=== PATIENT | female | born 1975 | race Caucasian/White ===

== ENCOUNTER 2017-10-14 07:15 | Inpatient (IN) | payer BC ==
[2017-10-14] MEDS: PANTOPRAZOLE 40 MG INJ IV ×2 (07:58→17:07)
[2017-10-14] MEDS: ONDANSETRON 4 MG INJ IV ×2 (07:58→11:28)
[2017-10-14] MEDS: SOD CHLORIDE 0.9% 500 ML IV (07:59)
[2017-10-14 08:02] LABS: ADD MAN DIFF? NO
[2017-10-14 08:05] LABS: BASOPHIL # 0.1 10^3/ul (0.0-0.1); BASOPHILS % 0.5 % (0.0-2.0); EOSINOPHILS # 0.1 10^3/ul (0.0-0.5); EOSINOPHILS % 0.6 % (0.0-7.0); HEMATOCRIT 33.9 % (37.0-47.0); HEMOGLOBIN 11.2 g/dl (12.0-16.0); LYMPHOCYTES # 1.3 10^3/ul (0.8-2.9); LYMPHOCYTES % 12.2 % (15.0-51.0); MEAN CORPUSCULAR HEMOGLOBIN 29.9 pg (29.0-33.0); MEAN CORPUSCULAR VOLUME 90.4 fl (82.0-101.0); MEAN PLATELET VOLUME 11.9 fl (7.4-10.4); MONOCYTE # 0.5 10^3/ul (0.3-0.9); MONOCYTES % 4.9 % (0.0-11.0); NEUTROPHIL # 8.5 10^3/ul (1.6-7.5); NEUTROPHILS % 81.4 % (39.0-77.0); PLATELET COUNT 225 10^3/UL (140-415); RED BLOOD COUNT 3.75 10^6/ul (4.20-5.40); RED CELL DISTRIBUTION WIDTH 12.5 % (11.5-14.5)
[2017-10-14 08:05] LABS: WHITE BLOOD COUNT 10.4 10^3/ul (4.8-10.8)
[2017-10-14 08:24] LABS: INR 0.91; PROTIME 12.3 Sec (11.9-14.9)
[2017-10-14 08:25] LABS: PARTIAL THROMBOPLASTIN TIME 24.5 Sec (25.0-35.0)
[2017-10-14 08:28] LABS: ALANINE AMINOTRANSFERASE 18 IU/L (13-69); ALBUMIN 3.8 g/dl (3.3-4.9); ALBUMIN/GLOBULIN RATIO 1.31; ALKALINE PHOSPHATASE 60 IU/L (42-121); ANION GAP 20 (8-16); ASPARTATE AMINO TRANSFERASE 20 IU/L (15-46); BILIRUBIN,INDIRECT 0.4 mg/dl (0-1.1); BILIRUBIN,TOTAL 0.4 mg/dl (0.2-1.3); BLOOD UREA NITROGEN 22 mg/dl (7-20); CALCIUM 8.5 mg/dl (8.4-10.2); CARBON DIOXIDE 21 mmol/L (21-31); CHLORIDE 103 mmol/L (97-110); CREATININE 0.42 mg/dl (0.44-1.00); GLUCOSE 291 mg/dl (70-220); LIPASE 91 U/L (23-300); POTASSIUM 4.6 mmol/L (3.5-5.1); SODIUM 139 mmol/L (135-144); TOTAL PROTEIN 6.7 g/dl (6.1-8.1)
[2017-10-14 10:24] LABS: ETHANOL < 10.0 mg/dl
[2017-10-14] MEDS ORDERED: NACL 0.9% 3 ML SYG IV (10:30)
[2017-10-14] MEDS ORDERED: INSULIN ASPART [NOVOLOG] 3 ML PEN SC (10:30)
[2017-10-14] MEDS ORDERED: GLUCOSE GEL 15 GRAM TUBE BUCCAL (11:00)
[2017-10-14] MEDS ORDERED: GLUCOSE GEL 15 GRAM TUBE PO ×2 (11:00)
[2017-10-14] MEDS ORDERED: GLUCAGON 1 MG INJ IM (11:00)
[2017-10-14] MEDS ORDERED: DEXTROSE 50% 50 ML SYRINGE IV ×2 (11:00)
[2017-10-14] MEDS: SOD CHLORIDE 0.9% 1,000 ML IV ×2 (11:20→20:25)
[2017-10-14 12:47] LABS: HEMOGLOBIN A1C 8.7 % (0-5.9)
[2017-10-14] MEDS: Insulin NOVOLOG SS MILD Algorithm (NPO/TPN/ENTERAL FEEDS) SC ×3 (13:38→20:30)
[2017-10-14 13:59] LABS: HEMATOCRIT 29.4 % (37.0-47.0); HEMOGLOBIN 9.7 g/dl (12.0-16.0)
[2017-10-14 15:41] LABS: ADD UMIC YES; UR ASCORBIC ACID NEGATIVE (NEGATIVE); UR BACTERIA FEW /HPF (NONE SEEN); UR BILIRUBIN (Dip) NEGATIVE (NEGATIVE); UR BLOOD (Dip) NEGATIVE (NEGATIVE); UR CLARITY CLEAR (CLEAR); UR COLOR STRAW (YELLOW); UR GLUCOSE (Dip) 3+ mg/dL (NEGATIVE); UR KETONES (Dip) 2+ mg/dL (NEGATIVE); UR LEUKOCYTE ESTERASE (Dip) 2+ Leu/ul (NEGATIVE); UR NITRITE (Dip) NEGATIVE (NEGATIVE); UR RBC 1 /HPF (0-5); UR SPECIFIC GRAVITY (Dip) 1.025 (1.003-1.030); UR SQUAMOUS EPITHELIAL CELL FEW /HPF (FEW); UR TOTAL PROTEIN (Dip) NEGATIVE (NEGATIVE); UR UROBILINOGEN (Dip) NEGATIVE (NEGATIVE); UR WBC 1 /HPF (0-5)
[2017-10-14 18:05] LABS: AMPHETAMINE/METHAMPHETAMINE NEGATIVE (NEGATIVE); BARBITURATES NEGATIVE (NEGATIVE); BENZODIAZEPINES NEGATIVE (NEGATIVE); CANNABINOIDS NEGATIVE (NEGATIVE); COCAINE NEGATIVE (NEGATIVE); OPIATES NEGATIVE (NEGATIVE)
[2017-10-14] MEDS: INSULIN GLARGINE [LANtus] 3 ML PEN SC (20:24)
[2017-10-14 20:28] LABS: OCCULT BLOOD STOOL NEGATIVE (NEGATIVE)
[2017-10-15] MEDS: Insulin NOVOLOG SS MILD Algorithm (NPO/TPN/ENTERAL FEEDS) SC ×6 (00:56→20:46)
[2017-10-15] MEDS: PANTOPRAZOLE 40 MG INJ IV ×2 (05:17→17:31)
[2017-10-15 05:36] LABS: ADD MAN DIFF? NO
[2017-10-15 05:40] LABS: BASOPHILS % 0.5 % (0.0-2.0); EOSINOPHILS # 0.1 10^3/ul (0.0-0.5); EOSINOPHILS % 1.2 % (0.0-7.0); HEMATOCRIT 23.7 % (37.0-47.0); LYMPHOCYTES # 1.7 10^3/ul (0.8-2.9); LYMPHOCYTES % 28.5 % (15.0-51.0); MEAN CORPUSCULAR HEMOGLOBIN 30.5 pg (29.0-33.0); MEAN CORPUSCULAR HGB CONC 33.8 g/dl (32.0-37.0); MEAN CORPUSCULAR VOLUME 90.5 fl (82.0-101.0); MEAN PLATELET VOLUME 11.4 fl (7.4-10.4); MONOCYTE # 0.4 10^3/ul (0.3-0.9); MONOCYTES % 6.6 % (0.0-11.0); NEUTROPHIL # 3.8 10^3/ul (1.6-7.5); NEUTROPHILS % 62.9 % (39.0-77.0); PLATELET COUNT 189 10^3/UL (140-415); RED BLOOD COUNT 2.62 10^6/ul (4.20-5.40); RED CELL DISTRIBUTION WIDTH 13.1 % (11.5-14.5)
[2017-10-15 06:05] LABS: ALANINE AMINOTRANSFERASE 25 IU/L (13-69); ALBUMIN 2.8 g/dl (3.3-4.9); ALBUMIN/GLOBULIN RATIO 1.12; ALKALINE PHOSPHATASE 47 IU/L (42-121); ANION GAP 11 (8-16); ASPARTATE AMINO TRANSFERASE 12 IU/L (15-46); BILIRUBIN,INDIRECT 0.3 mg/dl (0-1.1); BILIRUBIN,TOTAL 0.3 mg/dl (0.2-1.3); BLOOD UREA NITROGEN 18 mg/dl (7-20); CALCIUM 7.8 mg/dl (8.4-10.2); CARBON DIOXIDE 24 mmol/L (21-31); CHLORIDE 107 mmol/L (97-110); GLUCOSE 219 mg/dl (70-220); POTASSIUM 3.7 mmol/L (3.5-5.1); SODIUM 138 mmol/L (135-144); TOTAL PROTEIN 5.3 g/dl (6.1-8.1)
[2017-10-15 06:06] LABS: PHOSPHORUS 2.5 mg/dl (2.5-4.9)
[2017-10-15 06:06] LABS: CHOLESTEROL 132 mg/dl (100-200); HDL CHOLESTEROL 33 mg/dl (34-88); LDL CHOLESTEROL,CALCULATED 54 mg/dl; MAGNESIUM 1.7 mg/dl (1.7-2.5); TRIGLYCERIDES 227 mg/dl (0-149)
[2017-10-15] MEDS: SOD CHLORIDE 0.9% 1,000 ML IV ×2 (06:29→17:31)
[2017-10-15] MEDS: HYDROCODONE/APAP (5/325) TAB PO (20:42)
[2017-10-15] MEDS: INSULIN GLARGINE [LANtus] 3 ML PEN SC (20:46)
[2017-10-16] MEDS: Insulin NOVOLOG SS MILD Algorithm (NPO/TPN/ENTERAL FEEDS) SC ×4 (01:00→13:00)
[2017-10-16] MEDS: SOD CHLORIDE 0.9% 1,000 ML IV ×2 (01:41→10:26)
[2017-10-16] MEDS: PANTOPRAZOLE 40 MG INJ IV ×2 (05:00→17:42)
[2017-10-16 06:42] LABS: ADD MAN DIFF? NO
[2017-10-16 06:49] LABS: WHITE BLOOD COUNT 5.1 10^3/ul (4.8-10.8)
[2017-10-16 06:49] LABS: BASOPHILS % 0.6 % (0.0-2.0); EOSINOPHILS # 0.1 10^3/ul (0.0-0.5); EOSINOPHILS % 2.2 % (0.0-7.0); HEMATOCRIT 23.3 % (37.0-47.0); HEMOGLOBIN 7.7 g/dl (12.0-16.0); LYMPHOCYTES # 1.6 10^3/ul (0.8-2.9); LYMPHOCYTES % 31.3 % (15.0-51.0); MEAN CORPUSCULAR HEMOGLOBIN 30.4 pg (29.0-33.0); MEAN CORPUSCULAR VOLUME 92.1 fl (82.0-101.0); MEAN PLATELET VOLUME 11.5 fl (7.4-10.4); MONOCYTE # 0.3 10^3/ul (0.3-0.9); MONOCYTES % 5.9 % (0.0-11.0); NEUTROPHILS % 59.8 % (39.0-77.0); PLATELET COUNT 190 10^3/UL (140-415); RED BLOOD COUNT 2.53 10^6/ul (4.20-5.40); RED CELL DISTRIBUTION WIDTH 13.2 % (11.5-14.5)
[2017-10-16 07:15] LABS: MAGNESIUM 1.9 mg/dl (1.7-2.5)
[2017-10-16 07:15] LABS: PHOSPHORUS 3.4 mg/dl (2.5-4.9)
[2017-10-16 07:16] LABS: ALANINE AMINOTRANSFERASE 27 IU/L (13-69); ALBUMIN 2.7 g/dl (3.3-4.9); ALBUMIN/GLOBULIN RATIO 1.08; ALKALINE PHOSPHATASE 50 IU/L (42-121); ANION GAP 6 (8-16); ASPARTATE AMINO TRANSFERASE 32 IU/L (15-46); BILIRUBIN,INDIRECT 0.2 mg/dl (0-1.1); BILIRUBIN,TOTAL 0.2 mg/dl (0.2-1.3); BLOOD UREA NITROGEN 9 mg/dl (7-20); CALCIUM 7.9 mg/dl (8.4-10.2); CARBON DIOXIDE 27 mmol/L (21-31); CHLORIDE 112 mmol/L (97-110); CREATININE 0.48 mg/dl (0.44-1.00); GLUCOSE 122 mg/dl (70-220); SODIUM 141 mmol/L (135-144); TOTAL PROTEIN 5.2 g/dl (6.1-8.1)
[2017-10-16] MEDS: HYDROCODONE/APAP (5/325) TAB PO (10:26)
[2017-10-16] MEDS: PROPOFOL 40 ML (14:17)
[2017-10-16] MEDS: INSULIN ASPART [NOVOLOG] 3 ML PEN SC ×2 (17:36→21:29)
[2017-10-16] MEDS: INSULIN GLARGINE [LANtus] 3 ML PEN SC (21:28)
[2017-10-17] MEDS: PANTOPRAZOLE 40 MG INJ IV (05:42)
[2017-10-17 05:48] LABS: ADD MAN DIFF? NO
[2017-10-17 05:53] LABS: BASOPHILS % 0.6 % (0.0-2.0); EOSINOPHILS # 0.1 10^3/ul (0.0-0.5); EOSINOPHILS % 2.2 % (0.0-7.0); HEMATOCRIT 23.3 % (37.0-47.0); HEMOGLOBIN 7.8 g/dl (12.0-16.0); LYMPHOCYTES # 1.6 10^3/ul (0.8-2.9); LYMPHOCYTES % 32.9 % (15.0-51.0); MEAN CORPUSCULAR HEMOGLOBIN 30.6 pg (29.0-33.0); MEAN CORPUSCULAR HGB CONC 33.5 g/dl (32.0-37.0); MEAN CORPUSCULAR VOLUME 91.4 fl (82.0-101.0); MEAN PLATELET VOLUME 11.6 fl (7.4-10.4); MONOCYTE # 0.4 10^3/ul (0.3-0.9); MONOCYTES % 7.2 % (0.0-11.0); NEUTROPHIL # 2.8 10^3/ul (1.6-7.5); NEUTROPHILS % 56.7 % (39.0-77.0); PLATELET COUNT 221 10^3/UL (140-415); RED BLOOD COUNT 2.55 10^6/ul (4.20-5.40); RED CELL DISTRIBUTION WIDTH 12.9 % (11.5-14.5)
[2017-10-17 06:08] LABS: PHOSPHORUS 3.4 mg/dl (2.5-4.9)
[2017-10-17 06:08] LABS: MAGNESIUM 1.9 mg/dl (1.7-2.5)
[2017-10-17 07:37] LABS: ANION GAP 11 (8-16); BLOOD UREA NITROGEN 6 mg/dl (7-20); CALCIUM 8.4 mg/dl (8.4-10.2); CARBON DIOXIDE 25 mmol/L (21-31); CHLORIDE 108 mmol/L (97-110); CREATININE 0.48 mg/dl (0.44-1.00); GLUCOSE 161 mg/dl (70-220); POTASSIUM 3.9 mmol/L (3.5-5.1); SODIUM 140 mmol/L (135-144)
[2017-10-17] MEDS: INSULIN ASPART [NOVOLOG] 3 ML PEN SC ×2 (08:13→12:04)
[2017-10-17] MEDS: HYDROCODONE/APAP (5/325) TAB PO (10:32)
== END 2017-10-17 14:35 | disposition home or self-care (01) | DRG 378 ==
LOC: MS2 09:42 → E/R 07:15 → MS2 09:10
PROC: 0DB68ZX Excision of Stomach, Via Natural or Artificial Opening Endoscopic, Diagnostic (ICD-10-PCS; principal; 2017-10-16 11:20)
DX: K29.51 Unspecified chronic gastritis with bleeding (principal); D62 Acute posthemorrhagic anemia; K26.4 Chronic or unspecified duodenal ulcer with hemorrhage; E78.5 Hyperlipidemia, unspecified; E11.9 Type 2 diabetes mellitus without complications; F17.200 Nicotine dependence, unspecified, uncomplicated; K76.0 Fatty (change of) liver, not elsewhere classified; B96.81 Helicobacter pylori [H. pylori] as the cause of diseases classified elsewhere; E66.9 Obesity, unspecified; Z68.29 Body mass index [BMI] 29.0-29.9, adult; Z90.49 Acquired absence of other specified parts of digestive tract; Z79.84 Long term (current) use of oral hypoglycemic drugs
CPT/HCPCS: 36415; 76705; 80048; 80053; 80061; 80306; 80307; 81001; 82270; 82962; 83036; 83690; 83735; 84100; 84439; 84443; 84703; 85014; 85018; 85025; 85610; 85730; 86850; 86900; 86901; 87045; 87338; 96374; 96375; 99285-25